=== PATIENT | male | born 1995 | race Caucasian/White ===

== ENCOUNTER 2016-10-17 10:45 | Emergency (ER) | payer OTHER ==
[~2016-10-17] VITALS: Ht 180.3 cm; Wt 81.7 kg
[2016-10-17] MEDS ORDERED: FLONASE ALLERG9.9 ML NS (11:48)
[2016-10-17] MEDS ORDERED: NORFLEX100 MG PO (13:04)
[2016-10-17] MEDS ORDERED: NAPROSYN500 MG PO (13:04)
[2016-10-17 13:12] VITALS: BP 120/78
== END 2016-10-17 13:13 | disposition home or self-care (01) ==
LOC: ER 10:45
DX: S16.1XXA Strain of muscle, fascia and tendon at neck level, initial encounter (principal); W01.0XXA Fall on same level from slipping, tripping and stumbling without subsequent striking against object, initial encounter; Y93.89 Activity, other specified; Y92.89 Other specified places as the place of occurrence of the external cause; Y99.0 Civilian activity done for income or pay